=== PATIENT | male | born 1995 | race Caucasian/White ===

== ENCOUNTER 2016-05-06 12:13 | Emergency (ER) | payer OTHER ==
[2016-05-06 12:23] VITALS: RESP 16
[2016-05-06] MEDS ORDERED: NS 1,000 ML IV ONE ×2 (12:54→12:55)
--- NOTE | 2016-05-06 12:58 | EDPHY ---
H & P Stated Complaint: fell onto coccyx then back of head skiing; ?syncope after Time Seen by Provider: 05/06/16 12:32 HPI/ROS: CHIEF COMPLAINT: Head injury HISTORY OF PRESENT ILLNESS: The patient is a 20 year old male, brought in by EMS , presenting with head injury from snowboarding accident. The patient went off a jump at [place] and landed on his coccyx and hit the back of his head on the snow. He was not helmeted. He denies loss of consciousness. He was able to snowboard down to the first aid office. While getting evaluated he felt faint, short of breath, and had tightness in his lower extremities. His friend states the patient became rigid and had some tonic movement. Patient came to after 3 seconds. During transport he continued to feel faint. He states he is feeling better, but has a slight headache and mild nausea. He denies vomiting, numbness or tingling in extremities. No chest pain, shortness of breath, palpitations, vomiting, or diarrhea. Of note, the patient was drinking alcohol last night and did not eat breakfast this morning. REVIEW OF SYSTEMS: Aside from elements discussed in the HPI, a comprehensive 10-point review of systems was reviewed and is negative. PAST MEDICAL HISTORY: Denies. SOCIAL HISTORY: Non-cigarette smoker. Occasional alcohol use. Visiting from [place]. VITAL SIGNS: Reviewed by me; see NN. GENERAL: Well-developed, well-nourished, in no acute distress. HEENT: Head: Atraumatic, normocephalic. Face: Atraumatic. PERRL, EOMI, no nystagmus. Oropharynx: No trauma, normal occlusion. Neck: C2 tenderness, no pain with range of motion, no adenopathy. CHEST: Nontender, no subcutaneous air palpable. LUNGS: Clear to auscultation bilaterally, breath sounds are equal. CARDIAC: Regular rate and rhythm, no rubs, murmurs or gallops. ABDOMEN: Soft, nontender, nondistended, bowel sounds normal. BACK: No CVA tenderness, no spinal tenderness. EXTREMITIES: Tenderness to inguinal region, pain with internal rotation. PULSES: 2+ and equal throughout. NEURO: Alert and oriented x3, cranial nerves are intact throughout, normal motor , normal sensation. SKIN: Warm and dry, no rash. Portions of this note were transcribed by a medical office supervisor. I personally performed a history, physical exam, medical decision making, and confirmed accuracy of information the transcribed note. - Personal History Current Tetanus/Diphtheria Vaccine: Yes Current Tetanus Diphtheria and Acellular Pertussis (TDAP): Yes - Medical/Surgical History Hx Asthma: No Hx Chronic Respiratory Disease: No Hx Diabetes: No Hx Cardiac Disease: No Hx Renal Disease: No Hx Cirrhosis: No Hx Alcoholism: No Hx HIV/AIDS: No Hx Splenectomy or Spleen Trauma: No Other PMH: no med hx. no surg hx - Social History Smoking Status: Never smoked Constitutional: Initial Vital Signs Temperature (C) 36.7 C 05/06/16 12:19 Heart Rate 68 05/06/16 12:19 Respiratory Rate 16 05/06/16 12:19 Blood Pressure 131/77 H 05/06/16 12:19 O2 Sat (%) 100 05/06/16 12:19 O2 Delivery Mode Room Air Allergies/Adverse Reactions: No Known Allergies Allergy (Unverified 05/06/16 12:19) Medical Decision Making - Diagnostics EKG Interpretation: The 12 lead EKG was interpreted by myself. See hard copy and/or "tracemaster" electronic copy for interpretation: Sinus rhythm. Imaging: Results: CT scan of the head was obtained. I viewed the images independently on the PACS system. I discussed the results of the study with the radiologist. Impression: Negative. Please see the full radiology report. Results: CT scan of the cervical spine was obtained. I viewed the images independently on the PACS system. I discussed the results of the study with the radiologist. Impression: Negative. Please see the full radiology report. X-ray: chest was obtained. I viewed the images myself on the PACS system. My interpretation of the images is: Normal. The radiologist interpretation is: No pneumothorax. I discussed the x-ray findings with the patient. X-ray: Pelvis was obtained. I viewed the images myself on the PACS system. My interpretation of the images is: No fracture. The radiologist interpretation is: Normal. I discussed the x-ray findings with the [patient]. ED Course/Re-evaluation: Plan for CT head and cervical spine. EKG is normal. I will check basic labs. 2:50 p.m.: I discussed findings with the patient. Imaging shows no fractures. Labs are normal. Plan to have patient give urine to check for blood. No hematuria. 20-year-old male visiting from [place] who went skiing today after drinking significant amounts of alcohol last night and not having breakfast or much free fluid this morning. Patient fell woke going off of a jump and struck the back of his head. He had no loss of consciousness. All being evaluated at the first -aid room the patient had what sounds like a vasovagal episode. On arrival to the emergency department he is alert and neurologically intact. History does not sound as if he had a seizure but had some tonic-clonic jerking for few seconds during his syncopal episode. Evaluation included a head CT with no significant findings, CT scan of the cervical spine secondary to neck tenderness which was negative. Chest x-ray which was normal. Pelvis x-ray which was normal. Urinalysis which showed no blood. On initial evaluation the patient had some discomfort in his right groin but this has improved. He is ambulatory without difficulty. I do not believe the patient needs a CT scan or further imaging studies of his abdomen. He looks well. Vital signs have been normal. The patient does have a significant leukocytosis of 19,000. However, on re- examination, the patient continues to look well. He has no fever. No complaints of pain. He is hungry. He has not had any vomiting. I suspect this may be a stress leukocytosis. He was advised to seek medical care urgently if his symptoms are worsening or if he develops fever, vomiting, abdominal pain, abdominal distension, blood in his urine, chest pain, shortness of breath, or other concerns. He was discharged with his friends and will be driving back to [place]. Differential Diagnosis: Differential diagnosis of this patient's fall was considered including but not limited to intracranial injury, long bone and pelvic bone fracture, spinal injury, intrathoracic injury, extremity injury, intra-abdominal injury, lacerations, abrasions, and contusions. Differential diagnosis the patient's syncopal event was considered including but not limited to vasovagal syncope, arrhythmia, dehydration, and blood loss. - Data Points Laboratory Results: Laboratory Results 05/06/16 13:55 05/06/16 13:55 Medications Given: Discontinued Medications Sodium Chloride (Ns) 1,000 mls @ 0 mls/hr IV ONCE ONE PRN Reason: Wide Open Stop: 05/06/16 12:55 Last Admin: 03/16/17 13:00 Dose: 1,000 mls Sodium Chloride (Ns) 1,000 mls @ 0 mls/hr IV ONCE ONE PRN Reason: Wide Open Stop: 05/06/16 12:56 Last Admin: 05/06/16 13:45 Dose: 1,000 mls Departure - Departure Disposition: Home, Routine, Self-Care Clinical Impression: Concussion, Head injury, Dehydration, Syncope Condition: Good Instructions: Concussion (ED), Dehydration (ED), Syncope (ED) Additional Instructions: Limit physical activity for the next week. Drink plenty of fluids. Avoid TV, computer, bright lights. Return to the Emergency Department if you develop vision changes, severe nausea , headache, or worsening symptoms. I recommend Ibuprofen (Motrin, Advil) or Naproxen Sodium (Aleve) for pain and anti-inflammatory effects. You may take either one, but do not take both. Your dose is: Ibuprofen 600 mg every 6-8 hours with food. OR Naproxen Sodium (Aleve) 220 mg every 12 hours. You have been referred to the concussion clinic. For further evaluation please followup here, otherwise followup with your primary care physician when you return home. Referrals: Mary Kelley MD [Medical Doctor] - As per Instructions Report Scribed for: Stella Peck Report Scribed by: Марина Jasmine Date of Report: 05/06/16 Time of Report: 12:58
--- NOTE | 2016-05-06 13:36 | CPEKG ---
Heart Rate: 74 RR Interval: 811 P-R Interval: 148 QRSD Interval: 84 QT Interval: 388 QTC Interval: 431 P Comer: 79 QRS Comer: 69 T Wave Comer: 50 EKG Severity - NORMAL ECG - EKG Impression: SINUS RHYTHM Electronically Signed By: Stella Peck 06-May-2016 15:40:26
[2016-05-06 14:19] LABS: % IMMATURE GRANULYOCYTES 0.5 % (0.0-1.1); ADD DIFF? NO; ADD MORPH? NO; ADD SCAN? NO; ATYPICAL LYMPHOCYTE FLAG 0 (0-99); FRAGMENT RBC FLAG 0 (0-99); HEMATOCRIT 41.6 % (40.0-51.0); HEMOGLOBIN 14.6 g/dL (13.7-17.5); LEFT SHIFT FLG 0 (0-99); LIPEMIA HEMOLYSIS FLAG 90 (0-99); MEAN CELL HEMOGLOBIN 30.4 pg (27.9-34.1); MEAN CELL HEMOGLOBIN CONCENTR. 35.1 g/dL (32.4-36.7); MEAN CELL VOLUME 86.7 fL (81.5-99.8); MEAN PLATELET VOLUME 9.7 fL (8.7-11.7); PLATELET CLUMPS FLAG 0 (0-99); PLATELET COUNT 256 10^3/uL (150-400); RED CELL DISTRIBUTION WIDTH 12.5 % (11.5-15.2)
[2016-05-06 14:42] LABS: ANION GAP 13 mEq/L (8-16); CALCIUM 9.7 mg/dL (8.5-10.4); CARBON DIOXIDE 22 mEq/l (22-31); CHLORIDE 107 mEq/L (97-110); CREATININE 0.9 mg/dL (0.7-1.3); ETHANOL SERUM < 10 mg/dL (0-10); GLOMERULAR FILTRATION RATE > 60; GLUCOSE 75 mg/dL (70-100); POTASSIUM 4.3 mEq/L (3.5-5.2); SODIUM 142 mEq/L (134-144)
[2016-05-06 15:43] VITALS: BP 147/83; PULSE 73; TEMP 99; O2SAT 94
== END 2016-05-06 15:35 | disposition home or self-care (01) ==
DX: S06.0X0A Concussion without loss of consciousness, initial encounter (principal); E86.0 Dehydration; R55 Syncope and collapse; V00.318A Other snowboard accident, initial encounter; Y92.89 Other specified places as the place of occurrence of the external cause; Y93.23 Activity, snow (alpine) (downhill) skiing, snowboarding, sledding, tobogganing and snow tubing
CPT/HCPCS: G0480